=== PATIENT | female | born 1990 | race African-American/Black ===

== ENCOUNTER 2016-07-04 06:50 | Emergency (ER) | payer OTHER ==
[~2016-07-04] VITALS: Ht 160 cm; Wt 63.5 kg
--- NOTE | ~2016-07-04 | EKG ---
[address] [place] [employer] [address] ELECTROCARDIOGRAM REPORT Name: SANDEEP SANDERS Room #: [facility]#: [id number] Admission: 07/04/16 Attend Phys: Discharge: 07/04/16 Date of : [birth year] Report #: [id number] THIS REPORT FOR: //name// [facility] ED Test Date: 2016-07-04 Test Time: 07:40:19 Pat Name: SANDEEP SANDERS Department: Room: Gender: F Director Learning: : 1990 Requested By: Maikel Rodriguez Order Number: [id number] MD: Jeff Leos Measurements Intervals [place] Rate: 86 P: 48 [place]: 169 QRS: 67 QRSD: 99 T: 32 QT: 369 QTc: 442 Interpretive Statements Sinus rhythm No significant abnormality No previous ECG available for comparison Electronically Signed On 07-04-2016 13:53:28 [employer] by Jeff Leos [email or web address] <ELECTRONICALLY SIGNED> By: Jeff Leos MD, [facility] 07/04/16 1353 0740 0740 Jeff Leos MD, FACC /EPI
[~2016-07-04 06:50] MED LIST: PROGESTERONE100 MG PO
[2016-07-04 07:50] LABS: ABSOLUTE NEUTROPHILS 8.8 thou/uL (1.4-8.2); EOSINOPHILS 1.2 % (0.0-3.0); HEMATOCRIT 37.9 % (37.0-47.0); HEMOGLOBIN 12.5 gm/dL (12.0-15.0); LYMPHOCYTES 24.3 % (24.0-44.0); MCH 27.1 pg (26.0-34.0); MCHC 32.8 % (28.0-37.0); MCV 82.6 fL (80.0-100.0); MONOCYTES 7.5 % (1.0-8.0); PLATELET COUNT 395 thou/uL (150-400); RBC 4.59 mil/uL (4.20-5.00); RDW 13.3 % (10.5-14.5); WBC 13.4 thou/uL (4.0-11.0)
[2016-07-04 07:52] LABS: MANUAL DIFF NO
[2016-07-04 07:57] LABS: CALCIUM 9.1 mg/dL (8.5-10.1); CREATININE 0.7 mg/dL (0.6-1.3); POTASSIUM 3.6 mmol/L (3.5-5.1)
[2016-07-04 08:04] LABS: ALBUMIN 3.6 g/dL (3.4-5.0); TOTAL BILIRUBIN 0.3 mg/dL (<0.1-1.0); TOTAL PROTEIN 7.4 g/dL (6.4-8.2)
[2016-07-04] MEDS ORDERED: NORCO 5-325 TA1 EACH PO (11:49)
[2016-07-04] MEDS ORDERED: BACLOFEN 10MG T10 MG PO (11:49)
[2016-07-04] MEDS ORDERED: ONDANSETRON HCL4 M2 PO (11:49)
[2016-07-04] MEDS ORDERED: NAPROSYN500 MG PO (11:49)
== END 2016-07-04 12:18 | disposition home or self-care (01) ==
LOC: ER 06:50
PROVIDERS: Emergency Medicine
DX: S13.4XXA Sprain of ligaments of cervical spine, initial encounter (principal); S09.90XA Unspecified injury of head, initial encounter; J45.909 Unspecified asthma, uncomplicated; Z90.89 Acquired absence of other organs; Z88.0 Allergy status to penicillin; Z91.041 Radiographic dye allergy status; Z91.013 Allergy to seafood; Z87.891 Personal history of nicotine dependence; V47.5XXA Car driver injured in collision with fixed or stationary object in traffic accident, initial encounter; Y93.I9 Activity, other involving external motion; Y92.410 Unspecified street and highway as the place of occurrence of the external cause; Y99.9 Unspecified external cause status